=== PATIENT | female | born 1980 | race Two or more races ===

== ENCOUNTER 2018-08-29 10:27 | Emergency (ER) | payer MEDICAID ==
[2018-08-29 10:42] VITALS: RESP 16; O2SAT 99
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
[2018-08-29 13:23] VITALS: BP 112/72; PULSE 61; TEMP 98.2
== END 2018-08-29 13:26 | disposition home or self-care (01) ==
LOC: C.ER 10:27
DX: S83.91XA Sprain of unspecified site of right knee, initial encounter (principal); Y08.89XA Assault by other specified means, initial encounter; Y92.89 Other specified places as the place of occurrence of the external cause; M25.551 Pain in right hip; M25.552 Pain in left hip; M25.561 Pain in right knee
CPT/HCPCS: 73521; 73562; 81025; 96372; 99285; J1885